=== PATIENT | male | born 1955 | race Caucasian/White ===

== ENCOUNTER 2021-10-09 16:49 | Emergency (ER) | payer MEDICARE, SELFPAY ==
[2021-10-09] VITALS (29 sets, daily range): BP systolic 153–177; BP diastolic 83–108; PULSE 55–112; RESP 2–64; TEMP 37; O2SAT 80–100
--- NOTE | 2021-10-09 16:58 | DI.RAD.S_ITS ---
PROCEDURE: XR CHEST 1V INDICATIONS: chest pain TECHNIQUE: One view of the chest was acquired. COMPARISON: None. FINDINGS: Surgical changes and devices: None. Lungs and pleura: Lungs are clear. No pleural effusions or pneumothorax. Mediastinum: Mediastinal contours appear normal. Heart size is normal. Bones and chest wall: No suspicious bony lesions. Overlying soft tissues appear unremarkable. IMPRESSION: No acute process. Dictated by: Fracisco Mckinney M.D. on 10/09/2021 at 17:44 Approved by: Fracisco Mckinney M.D. on 10/09/2021 at 17:44
[2021-10-09 17:28] LABS: Alanine Aminotransferase 13 IU/L (<50); Albumin 4.9 g/dL (3.5-5.0); Albumin Globulin Ratio 0.9 (1.0-2.8); Alkaline Phosphatase 88 U/L (38-126); Aspartate Aminotransferase 20 IU/L (17-59); Bilirubin Total 0.5 mg/dL (0.2-1.3); Calcium 10.8 mg/dL (8.4-10.2); Carbon Dioxide 19 mmol/L (22-32); Chloride 96 mmol/L (98-107); Creatine Kinase 95 U/L (55-170); Estimated Glomerular Filt Rate 5.5 mL/min (>60); Globulin 5.7 g/dL (1.7-4.1); Glucose 236 mg/dL (80-110); HEMOLYSIS < 15 (0-50); Lipase 174 U/L (23-300); Magnesium 2.3 mg/dL (1.6-2.3); Sodium 129 mmol/L (137-145)
[2021-10-09 17:35] LABS: BUN Creatinine Ratio 20.3 (6-22)
[2021-10-09 17:37] LABS: Blood Urea Nitrogen 195 mg/dL (9-20); Potassium 7.9 mmol/L (3.4-5.1); Total Protein 10.6 g/dL (6.3-8.2)
[2021-10-09 17:39] LABS: Troponin I 0.046 ng/mL (0.01-0.034)
[2021-10-09 17:48] LABS: Add Manual Diff / Slide Review NO; Basophils Absolute Auto 0 /uL (0-100); Basophils Percent Auto 0.3 % (0-2); Eosinophils Absolute Auto 100 /uL (0-450); Eosinophils Percent Auto 0.5 % (2-4); Hematocrit 39.4 % (41-53); Hemoglobin 13.4 g/dL (13.5-17.5); Lymphocytes Absolute Auto 800 /uL (1100-4500); Lymphocytes Percent Auto 5.8 % (25-40); Mean Corpuscular HGB Conc 33.9 % (30-36); Mean Corpuscular Hemoglobin 30.1 PG (26-34); Mean Corpuscular Volume 88.8 fL (80-100); Monocytes Absolute Auto 700 /uL (0-900); Monocytes Percent Auto 4.8 % (3-14); Neutrophils Absolute Auto 12200 /uL (1500-7000); Neutrophils Percent Auto 88.6 % (50-75); Platelet Count 407 X10^3/uL (150-400); Red Blood Cell Count 4.43 X10^6/uL (4.5-5.9); Red Cell Distribution Width 13.8 % (11.6-14.8); White Blood Cell Count 13.8 X10^3/uL (4.5-11.0)
[2021-10-09 17:56] LABS: Magnesium 2.4 mg/dL (1.6-2.3)
--- NOTE | 2021-10-09 17:59 | ED.RECABL ---
HPI - Recheck/Abnormal Lab/Rx General Chief Complaint: Recheck/Abnormal Lab/Rx Stated Complaint: numbnessin hands, weakness, not feeling well Time Seen by Provider: 10/09/21 17:38 Source: patient Mode of arrival: Ambulatory History of Present Illness HPI narrative: Patient is a 66-year-old male who has no past medical history presenting with progressive weakness. He does not really complain of shortness of breath chest pain or falls. He states he has stairs in his house a week no longer make it up them. He continues to eat and drink he occasionally feels nauseous no significant vomiting. He has been checking for fever he has not had any fever or night sweats. He does have urinary incontinence stating that he has to wear diapers. He occasionally smokes marijuana and cigarettes but and takes vitamin-C no other supplements or medications. Related Data Home Medications Medication Instructions Recorded Confirmed No Known Home Medications 10/09/21 10/09/21 Allergies Allergy/AdvReac Type Severity Reaction Status Date / Time No Known Drug Allergies Allergy Verified 10/09/21 17:38 Review of Systems Review of Systems ROS Unobtainable: All systems reviewed & are unremarkable except as noted in HPI and below Constitutional Constitutional: Reports as per HPI, Denies body ache(s), Denies chills, Denies headache(s) and Reports weakness Eyes Eyes: Denies diplopia ENT Ears, Nose, Mouth, and Throat: Denies vertigo, Denies dizziness, Denies headache(s) and Denies sore throat Cardiovascular Cardiovascular: Denies chest pain, Denies syncope and Denies dyspnea on exertion Respiratory Respiratory: Denies chest congestion and Denies dyspnea on exertion Gastrointestinal Gastrointestinal: Denies abdominal pain, Reports nausea and Denies vomiting Genitourinary Genitourinary: Reports as per HPI and Reports urinary incontinence Musculoskeletal Musculoskeletal: Reports atrophy, Denies deformity and Reports muscle weakness Integumentary/Breasts Skin/Breast: Denies rash and Denies skin pain Neurologic Neurologic: Denies vertigo, Denies dizziness, Denies syncope, Denies headache(s) and Reports weakness Patient History Social History Smoking Status: Current every day smoker Smoking Status: Current every day smoker Exam Initial Vital Signs Initial Vital Signs: Vital Signs Temperature 98.6 F 10/09/21 16:56 Pulse Rate 58 L 01/18/22 16:56 Respiratory Rate 20 10/09/21 16:56 Blood Pressure 156/102 H 10/09/21 16:56 Pulse Oximetry 98 10/09/21 16:56 GENERAL: Thin week 66-year-old maleand in no acute distress. HEENT: Head atraumatic,EOMI, pupils reactive, face symmetric, moist mucous membranes CARDIOVASCULAR: Regular rate and rhythm without murmurs, rubs or gallops. RESPIRATORY: Breath sounds equal bilaterally, no wheezes rales or rhonchi. ABDOMEN: Soft, palpable distended bladder by ultrasound. No significant pain. No tenderness no guarding or rebound EXTREMITIES: Normal range of motion, no clubbing or edema. Neurovascularly intact NEUROLOGICAL: Alert and oriented x4.Normal gait and speech. Cranial nerves II through XII grossly intact. Good [id number], good [id number], strength equal bilaterally, no dysarthria or aphasia, sensation in tact to soft touch bilaterally, no visual changes, no facial droop SKIN: Warm, dry, no laceration, no petechiae, no rashes or lesions. Course Orders Ordered: ED Orders 10/09/21 18:24 CT abdomen pelvis wo con Stat CT head/brain wo con Stat 10/09/21 18:25 COVID19 -Nasal swab/Pre-Proc Stat 10/09/21 18:40 Calcium Urine Random Stat Sodium Urine Random Stat UA Complete [Urinalysis and Microscopic] Stat Urine Culture Stat 10/09/21 18:50 Creatinine Urine Random Stat 10/09/21 18:52 Urine Drug Screen, Rapid Stat 10/09/21 19:56 BMP [Basic Metabolic Panel] Stat Trop I [Troponin I] Stat 10/09/21 20:04 Blood Culture Stat 10/09/21 21:02 EKG-12 Lead Stat 10/10/21 07:00 BMP [Basic Metabolic Panel] Stat CBC Auto Diff [Complete Blood Count AUTO DIFF] Stat Discontinued Medications Albuterol (Albuterol 2.5 Mg/3 Ml Neb (Adult)) 2.5 mg INH NOW ONE Stop: 10/09/21 18:13 Last Admin: 10/09/21 18:25 Dose: 2.5 mg Documented by: BERNY Dextrose (Dextrose 50 % In Water 25 Gm/50 Ml Syringe) 25 gm IV NOW ONE Stop: 10/09/21 17:39 Last Admin: 10/09/21 18:06 Dose: 25 gm Documented by: OBEY Sodium Chloride (Normal Saline 0.9%) 1,000 mls @ 150 mls/hr IV CONT RAJENDRA Calcium Gluconate 4.65 meq/ (Sodium Chloride) 60 mls @ 180 mls/hr IV NOW ONE Stop: 10/09/21 17:57 Last Infusion: 10/09/21 18:33 Dose: 0 mls/hr Documented by: Admin: 10/09/21 18:04 Dose: 180 mls/hr Documented by: OBEY Sodium Chloride (Normal Saline 0.9%) 1,000 mls @ 500 mls/hr IV BOLUS ONE Stop: 10/09/21 19:42 Last Infusion: 10/09/21 20:04 Dose: 0 mls/hr Documented by: Admin: 10/09/21 18:10 Dose: 500 mls/hr Documented by: OBEY Sodium Chloride (Normal Saline 0.9%) 1,000 mls @ 125 mls/hr IV CONT RAJENDRA Last Infusion: 10/10/21 02:55 Dose: 125 mls/hr Documented by: Admin: 10/09/21 20:03 Dose: 125 mls/hr Documented by: OBEY Ceftriaxone Sodium 1,000 mg/ (Sodium Chloride) 100 mls @ 200 mls/hr IV NOW ONE Stop: 10/09/21 19:19 Last Infusion: 10/09/21 20:35 Dose: 0 mls/hr Documented by: Admin: 10/09/21 20:01 Dose: 200 mls/hr Documented by: OBEY Insulin Human Regular (Insulin Regular 100 Unit/Ml 3 Ml Vial) 10 unit IV NOW ONE Stop: 10/09/21 17:39 Last Admin: 10/09/21 18:06 Dose: 10 unit Documented by: OBEY Cosigned by: GALLO Lidocaine HCl (Lidocaine 2% (Glydo) 6 Ml Gel) 6 ml TOP NOW ONE Stop: 10/09/21 18:07 Last Admin: 10/09/21 18:11 Dose: 6 ml Documented by: OBEY Lorazepam (Lorazepam 2 Mg/Ml Inj) 0.5 mg IV NOW ONE Stop: 10/09/21 19:31 Last Admin: 10/09/21 19:37 Dose: 0.5 mg Documented by: OBEY Lorazepam (Lorazepam 2 Mg/Ml Inj) 1 mg IV NOW ONE Stop: 10/09/21 22:52 Last Admin: 10/09/21 22:58 Dose: 1 mg Documented by: OBEY Sodium Bicarbonate (Sodium Bicarb 8.4% Syringe) 50 meq IV NOW ONE Stop: 10/09/21 17:39 Last Admin: 10/09/21 18:05 Dose: 50 meq Documented by: OBEY Sodium Polystyrene Sulfonate (Sodium Polystyrene Sulfon/Sorb 15 Gm/60 Ml Cup) 30 gm PO NOW ONE Stop: 10/09/21 17:39 Last Admin: 10/09/21 18:06 Dose: 30 gm Documented by: OBEY Vital Signs Vital signs: Vital Signs - 8 hr 10/09/21 19:15 10/09/21 19:25 10/09/21 19:30 Temperature Pulse Rate 64 71 70 Respiratory Rate 20 25 H 21 Blood Pressure 153/83 H 159/84 H Pulse Oximetry 100 98 99 10/09/21 19:45 10/09/21 20:00 10/09/21 20:15 Temperature Pulse Rate 70 68 74 Respiratory Rate 19 18 Blood Pressure Pulse Oximetry 97 100 97 10/09/21 20:30 10/09/21 20:45 10/09/21 21:00 Temperature Pulse Rate 78 78 87 Respiratory Rate 19 19 20 Blood Pressure Pulse Oximetry 96 95 92 10/09/21 21:21 10/09/21 21:30 10/09/21 21:45 Temperature Pulse Rate 78 70 82 Respiratory Rate 22 21 Blood Pressure Pulse Oximetry 98 10/09/21 22:00 10/09/21 22:15 10/09/21 22:23 Temperature Pulse Rate 61 78 64 Respiratory Rate 2 L Blood Pressure 169/101 H Pulse Oximetry 100 99 10/09/21 22:30 10/09/21 22:45 10/09/21 23:00 Temperature Pulse Rate 85 112 H 66 Respiratory Rate 44 H 37 H Blood Pressure Pulse Oximetry 80 L 99 10/09/21 23:15 10/09/21 23:30 10/10/21 02:40 Temperature 97.4 F L Pulse Rate 67 67 79 Respiratory Rate 49 H 64 H 16 Blood Pressure 144/85 H Pulse Oximetry 99 99 98 MDM - Recheck/Abnormal Lab/Rx Lab Data Result diagrams: 10/09/21 17:03 10/09/21 19:56 Labs: Lab Results 10/09/21 10/09/21 10/09/21 Range/Units 17:03 17:03 17:03 WBC 13.8 H (4.5-11.0) X10^3/uL RBC 4.43 L (4.5-5.9) X10^6/uL Hgb 13.4 L (13.5-17.5) g/dL Hct 39.4 L (41-53) % MCV 88.8 (80-100) fL MCH 30.1 (26-34) PG MCHC 33.9 (30-36) % RDW 13.8 (11.6-14.8) % Plt Count 407 H (150-400) X10^3/uL Neut % (Auto) 88.6 H (50-75) % Lymph % (Auto) 5.8 L (25-40) % [place] % (Auto) 4.8 (3-14) % Eos % (Auto) 0.5 L (2-4) % Baso % (Auto) 0.3 (0-2) % Neut # (Auto) 93965 H (5913-1760) /uL Lymph # (Auto) 800 L (2724-8476) /uL [place] # (Auto) 700 (0-900) /uL Eos # (Auto) 100 (0-450) /uL Baso # (Auto) 0 (0-100) /uL Sodium 129 L (137-145) mmol/L Potassium 7.9 H* (3.4-5.1) mmol/L Chloride 96 L (98-107) mmol/L Carbon Dioxide 19 L (22-32) mmol/L BUN 195 H* (9-20) mg/dL Creatinine 9.61 H* (0.66-1.25) mg/dL Estimated GFR 5.5 L (>60) mL/min BUN/Creatinine Ratio 20.3 (6-22) Glucose 236 H (80-110) mg/dL Lactate (0.7-2.1) mmol/L Calcium 10.8 H (8.4-10.2) mg/dL Magnesium 2.3 2.4 H (1.6-2.3) mg/dL Total Bilirubin 0.5 (0.2-1.3) mg/dL AST 20 (17-59) IU/L ALT 13 (<50) IU/L Alkaline Phosphatase 88 (38-126) U/L Total Creatine Kinase 95 (55-170) U/L CK-MB (CK-2) TNP CK-MB (CK-2) Rel Index TNP Troponin I 0.046 H (0.01-0.034) ng/mL Total Protein 10.6 H* (6.3-8.2) g/dL Albumin 4.9 (3.5-5.0) g/dL Globulin 5.7 H (1.7-4.1) g/dL Albumin/Globulin Ratio 0.9 L (1.0-2.8) Lipase 174 (23-300) U/L Procalcitonin (<0.5) ng/mL Urine Color Urine Appearance Urine pH (4.5-8.0) Ur Specific [place] (1.000-1.035) Urine Protein (Negative) Urine Glucose (UA) (Negative) g/dL Urine Ketones (NEGATIVE) Urine Occult Blood (Negative) Urine Nitrate (Negative) Urine Bilirubin (NEGATIVE) Urine Urobilinogen (0.2) E.U./dL Ur Leukocyte Esterase (NEGATIVE) Urine RBC (0-5/HPF) Urine WBC (0-5/HPF) Ur Squamous Epith Cells (0-5/HPF) Amorphous Sediment Urine Bacteria (None) Ur Culture Indicated? Ur Random Sodium (30-90) mmol/L Ur Random Calcium mg/dL Urine Creatinine mg/dL U Opiates 300ng/mL cut (Negative) Ur Oxycodone Screen (Negative) Urine Methadone Screen (Negative) Ur Barbiturates Screen (Negative) U Tricyclic Antidepress (Negative) Ur Phencyclidine Scrn (Negative) Ur Amphetamines Screen (Negative) U Methamphetamines Scrn (Negative) Ur MDMA Scrn (Ecstasy) (Negative) U Benzodiazepines Scrn (Negative) Urine Cocaine Screen (Negative) U Marijuana (THC) Screen (Negative) SARS-CoV-2 (PCR) (Negative) 10/09/21 10/09/21 10/09/21 Range/Units 17:03 17:03 18:25 WBC (4.5-11.0) X10^3/uL RBC (4.5-5.9) X10^6/uL Hgb (13.5-17.5) g/dL Hct (41-53) % MCV (80-100) fL MCH (26-34) PG MCHC (30-36) % RDW (11.6-14.8) % Plt Count (150-400) X10^3/uL Neut % (Auto) (50-75) % Lymph % (Auto) (25-40) % [place] % (Auto) (3-14) % Eos % (Auto) (2-4) % Baso % (Auto) (0-2) % Neut # (Auto) (5675-2691) /uL Lymph # (Auto) (3965-7714) /uL [place] # (Auto) (0-900) /uL Eos # (Auto) (0-450) /uL Baso # (Auto) (0-100) /uL Sodium (137-145) mmol/L Potassium (3.4-5.1) mmol/L Chloride (98-107) mmol/L Carbon Dioxide (22-32) mmol/L BUN (9-20) mg/dL Creatinine (0.66-1.25) mg/dL Estimated GFR (>60) mL/min BUN/Creatinine Ratio (6-22) Glucose (80-110) mg/dL Lactate 1.6 (0.7-2.1) mmol/L Calcium (8.4-10.2) mg/dL Magnesium (1.6-2.3) mg/dL Total Bilirubin (0.2-1.3) mg/dL AST (17-59) IU/L ALT (<50) IU/L Alkaline Phosphatase (38-126) U/L Total Creatine Kinase (55-170) U/L CK-MB (CK-2) CK-MB (CK-2) Rel Index Troponin I (0.01-0.034) ng/mL Total Protein (6.3-8.2) g/dL Albumin (3.5-5.0) g/dL Globulin (1.7-4.1) g/dL Albumin/Globulin Ratio (1.0-2.8) Lipase (23-300) U/L Procalcitonin 1.29 H (<0.5) ng/mL Urine Color Urine Appearance Urine pH (4.5-8.0) Ur Specific [place] (1.000-1.035) Urine Protein (Negative) Urine Glucose (UA) (Negative) g/dL Urine Ketones (NEGATIVE) Urine Occult Blood (Negative) Urine Nitrate (Negative) Urine Bilirubin (NEGATIVE) Urine Urobilinogen (0.2) E.U./dL Ur Leukocyte Esterase (NEGATIVE) Urine RBC (0-5/HPF) Urine WBC (0-5/HPF) Ur Squamous Epith Cells (0-5/HPF) Amorphous Sediment Urine Bacteria (None) Ur Culture Indicated? Ur Random Sodium (30-90) mmol/L Ur Random Calcium mg/dL Urine Creatinine mg/dL U Opiates 300ng/mL cut (Negative) Ur Oxycodone Screen (Negative) Urine Methadone Screen (Negative) Ur Barbiturates Screen (Negative) U Tricyclic Antidepress (Negative) Ur Phencyclidine Scrn (Negative) Ur Amphetamines Screen (Negative) U Methamphetamines Scrn (Negative) Ur MDMA Scrn (Ecstasy) (Negative) U Benzodiazepines Scrn (Negative) Urine Cocaine Screen (Negative) U Marijuana (THC) Screen (Negative) SARS-CoV-2 (PCR) Positive H (Negative) 10/09/21 10/09/21 10/09/21 Range/Units 18:40 18:40 18:40 WBC (4.5-11.0) X10^3/uL RBC (4.5-5.9) X10^6/uL Hgb (13.5-17.5) g/dL Hct (41-53) % MCV (80-100) fL MCH (26-34) PG MCHC (30-36) % RDW (11.6-14.8) % Plt Count (150-400) X10^3/uL Neut % (Auto) (50-75) % Lymph % (Auto) (25-40) % [place] % (Auto) (3-14) % Eos % (Auto) (2-4) % Baso % (Auto) (0-2) % Neut # (Auto) (2681-3102) /uL Lymph # (Auto) (2140-4702) /uL [place] # (Auto) (0-900) /uL Eos # (Auto) (0-450) /uL Baso # (Auto) (0-100) /uL Sodium (137-145) mmol/L Potassium (3.4-5.1) mmol/L Chloride (98-107) mmol/L Carbon Dioxide (22-32) mmol/L BUN (9-20) mg/dL Creatinine (0.66-1.25) mg/dL Estimated GFR (>60) mL/min BUN/Creatinine Ratio (6-22) Glucose (80-110) mg/dL Lactate (0.7-2.1) mmol/L Calcium (8.4-10.2) mg/dL Magnesium (1.6-2.3) mg/dL Total Bilirubin (0.2-1.3) mg/dL AST (17-59) IU/L ALT (<50) IU/L Alkaline Phosphatase (38-126) U/L Total Creatine Kinase (55-170) U/L CK-MB (CK-2) CK-MB (CK-2) Rel Index Troponin I (0.01-0.034) ng/mL Total Protein (6.3-8.2) g/dL Albumin (3.5-5.0) g/dL Globulin (1.7-4.1) g/dL Albumin/Globulin Ratio (1.0-2.8) Lipase (23-300) U/L Procalcitonin (<0.5) ng/mL Urine Color Yellow Urine Appearance Cloudy Urine pH 6.5 (4.5-8.0) Ur Specific [place] 1.010 (1.000-1.035) Urine Protein 2+ H (Negative) Urine Glucose (UA) Negative (Negative) g/dL Urine Ketones Negative (NEGATIVE) Urine Occult Blood 3+ H (Negative) Urine Nitrate Negative (Negative) Urine Bilirubin Negative (NEGATIVE) Urine Urobilinogen 0.2 (0.2) E.U./dL Ur Leukocyte Esterase 3+ H (NEGATIVE) Urine RBC 1-5/hpf (0-5/HPF) Urine WBC >100/hpf H (0-5/HPF) Ur Squamous Epith Cells 0-1 /hpf (0-5/HPF) Amorphous Sediment 1+ Urine Bacteria Many (>30) H (None) Ur Culture Indicated? Specimen cultured Ur Random Sodium 31 (30-90) mmol/L Ur Random Calcium 1.9 mg/dL Urine Creatinine mg/dL U Opiates 300ng/mL cut (Negative) Ur Oxycodone Screen (Negative) Urine Methadone Screen (Negative) Ur Barbiturates Screen (Negative) U Tricyclic Antidepress (Negative) Ur Phencyclidine Scrn (Negative) Ur Amphetamines Screen (Negative) U Methamphetamines Scrn (Negative) Ur MDMA Scrn (Ecstasy) (Negative) U Benzodiazepines Scrn (Negative) Urine Cocaine Screen (Negative) U Marijuana (THC) Screen (Negative) SARS-CoV-2 (PCR) (Negative) 10/09/21 10/09/21 10/09/21 Range/Units 18:50 18:52 19:56 WBC (4.5-11.0) X10^3/uL RBC (4.5-5.9) X10^6/uL Hgb (13.5-17.5) g/dL Hct (41-53) % MCV (80-100) fL MCH (26-34) PG MCHC (30-36) % RDW (11.6-14.8) % Plt Count (150-400) X10^3/uL Neut % (Auto) (50-75) % Lymph % (Auto) (25-40) % [place] % (Auto) (3-14) % Eos % (Auto) (2-4) % Baso % (Auto) (0-2) % Neut # (Auto) (1715-6984) /uL Lymph # (Auto) (3856-3781) /uL [place] # (Auto) (0-900) /uL Eos # (Auto) (0-450) /uL Baso # (Auto) (0-100) /uL Sodium 134 L (137-145) mmol/L Potassium 5.8 H D (3.4-5.1) mmol/L Chloride 99 (98-107) mmol/L Carbon Dioxide 21 L (22-32) mmol/L BUN 188 H* (9-20) mg/dL Creatinine 8.96 H* (0.66-1.25) mg/dL Estimated GFR 6.0 L (>60) mL/min BUN/Creatinine Ratio 21.0 (6-22) Glucose 149 H (80-110) mg/dL Lactate (0.7-2.1) mmol/L Calcium 10.4 H (8.4-10.2) mg/dL Magnesium (1.6-2.3) mg/dL Total Bilirubin (0.2-1.3) mg/dL AST (17-59) IU/L ALT (<50) IU/L Alkaline Phosphatase (38-126) U/L Total Creatine Kinase (55-170) U/L CK-MB (CK-2) CK-MB (CK-2) Rel Index Troponin I (0.01-0.034) ng/mL Total Protein (6.3-8.2) g/dL Albumin (3.5-5.0) g/dL Globulin (1.7-4.1) g/dL Albumin/Globulin Ratio (1.0-2.8) Lipase (23-300) U/L Procalcitonin (<0.5) ng/mL Urine Color Urine Appearance Urine pH (4.5-8.0) Ur Specific [place] (1.000-1.035) Urine Protein (Negative) Urine Glucose (UA) (Negative) g/dL Urine Ketones (NEGATIVE) Urine Occult Blood (Negative) Urine Nitrate (Negative) Urine Bilirubin (NEGATIVE) Urine Urobilinogen (0.2) E.U./dL Ur Leukocyte Esterase (NEGATIVE) Urine RBC (0-5/HPF) Urine WBC (0-5/HPF) Ur Squamous Epith Cells (0-5/HPF) Amorphous Sediment Urine Bacteria (None) Ur Culture Indicated? Ur Random Sodium (30-90) mmol/L Ur Random Calcium mg/dL Urine Creatinine 70.4 mg/dL U Opiates 300ng/mL cut Negative (Negative) Ur Oxycodone Screen Negative (Negative) Urine Methadone Screen Negative (Negative) Ur Barbiturates Screen Negative (Negative) U Tricyclic Antidepress Negative (Negative) Ur Phencyclidine Scrn Negative (Negative) Ur Amphetamines Screen Negative (Negative) U Methamphetamines Scrn Negative (Negative) Ur MDMA Scrn (Ecstasy) Negative (Negative) U Benzodiazepines Scrn Negative (Negative) Urine Cocaine Screen Positive H (Negative) U Marijuana (THC) Screen Negative (Negative) SARS-CoV-2 (PCR) (Negative) 10/09/21 Range/Units 19:56 WBC (4.5-11.0) X10^3/uL RBC (4.5-5.9) X10^6/uL Hgb (13.5-17.5) g/dL Hct (41-53) % MCV (80-100) fL MCH (26-34) PG MCHC (30-36) % RDW (11.6-14.8) % Plt Count (150-400) X10^3/uL Neut % (Auto) (50-75) % Lymph % (Auto) (25-40) % [place] % (Auto) (3-14) % Eos % (Auto) (2-4) % Baso % (Auto) (0-2) % Neut # (Auto) (7929-7621) /uL Lymph # (Auto) (0243-0513) /uL [place] # (Auto) (0-900) /uL Eos # (Auto) (0-450) /uL Baso # (Auto) (0-100) /uL Sodium (137-145) mmol/L Potassium (3.4-5.1) mmol/L Chloride (98-107) mmol/L Carbon Dioxide (22-32) mmol/L BUN (9-20) mg/dL Creatinine (0.66-1.25) mg/dL Estimated GFR (>60) mL/min BUN/Creatinine Ratio (6-22) Glucose (80-110) mg/dL Lactate (0.7-2.1) mmol/L Calcium (8.4-10.2) mg/dL Magnesium (1.6-2.3) mg/dL Total Bilirubin (0.2-1.3) mg/dL AST (17-59) IU/L ALT (<50) IU/L Alkaline Phosphatase (38-126) U/L Total Creatine Kinase (55-170) U/L CK-MB (CK-2) CK-MB (CK-2) Rel Index Troponin I 0.045 H (0.01-0.034) ng/mL Total Protein (6.3-8.2) g/dL Albumin (3.5-5.0) g/dL Globulin (1.7-4.1) g/dL Albumin/Globulin Ratio (1.0-2.8) Lipase (23-300) U/L Procalcitonin (<0.5) ng/mL Urine Color Urine Appearance Urine pH (4.5-8.0) Ur Specific [place] (1.000-1.035) Urine Protein (Negative) Urine Glucose (UA) (Negative) g/dL Urine Ketones (NEGATIVE) Urine Occult Blood (Negative) Urine Nitrate (Negative) Urine Bilirubin (NEGATIVE) Urine Urobilinogen (0.2) E.U./dL Ur Leukocyte Esterase (NEGATIVE) Urine RBC (0-5/HPF) Urine WBC (0-5/HPF) Ur Squamous Epith Cells (0-5/HPF) Amorphous Sediment Urine Bacteria (None) Ur Culture Indicated? Ur Random Sodium (30-90) mmol/L Ur Random Calcium mg/dL Urine Creatinine mg/dL U Opiates 300ng/mL cut (Negative) Ur Oxycodone Screen (Negative) Urine Methadone Screen (Negative) Ur Barbiturates Screen (Negative) U Tricyclic Antidepress (Negative) Ur Phencyclidine Scrn (Negative) Ur Amphetamines Screen (Negative) U Methamphetamines Scrn (Negative) Ur MDMA Scrn (Ecstasy) (Negative) U Benzodiazepines Scrn (Negative) Urine Cocaine Screen (Negative) U Marijuana (THC) Screen (Negative) SARS-CoV-2 (PCR) (Negative) Imaging Data Chest x-ray: Radiologist's Impression: PROCEDURE:? XR CHEST 1V ? INDICATIONS:? chest pain ? TECHNIQUE:? One view of the chest was acquired.? ? COMPARISON:? None. ? FINDINGS:? ? Surgical changes and devices:? None.? ? Lungs and pleura:? Lungs are clear.? No pleural effusions or pneumothorax.? ? Mediastinum:? Mediastinal contours appear normal.? Heart size is normal.? ? Bones and chest wall:? No suspicious bony lesions.? Overlying soft tissues appear unremarkable.? ? IMPRESSION:? No acute process. ? ? Dictated by: Fracisco Mckinney M.D. on 10/09/2021 at 17:44 ? ? CT scan - head: Radiologist's Impression: PROCEDURE:? CT HEAD/BRAIN WO CON ? INDICATIONS:? weakness falls ? TECHNIQUE:? Noncontrast 4.5 mm thick angled axial sections acquired from the foramen magnum to the vertex, with coronal and sagittal reformats.? For radiation dose reduction, the following was used:? automated exposure control, adjustment of mA and/or kV according to patient size.? ? COMPARISON:? None. ? FINDINGS:? Image quality:? Excellent.? ? CSF spaces:? Basal cisterns are patent.? No extra-axial fluid collections.? The ventricles are symmetric in size and shape.? ? Brain:? No intracranial bleeds or masses.? Moderate chronic left frontal lobe infarct.? There is cerebral volume loss for age, with resultant ventricular and sulcal prominence.? There are periventricular and deep white matter chronic small vessel ischemic changes.? There is intracranial internal carotid artery atherosclerosis.? ? Skull and face:? Calvarium and visualized facial bones appear intact, without suspicious lesions.? ? Sinuses:? Visualized sinuses and mastoids are clear.? ? IMPRESSION:? 1. Volume loss and small vessel ischemic disease. 2. Chronic left frontal lobe infarct. 3. No acute intracranial abnormality. ? ? Dictated by: Fracisco Mckinney M.D. on 10/09/2021 at 19:04 ? CT scan - abdomen/pelvis: Radiologist's Impression: PROCEDURE:? CT ABDOMEN PELVIS WO CON ? INDICATIONS:? new onset severe renal failure ? TECHNIQUE:? Noncontrast 5 mm thick sections acquired from the diaphragms to the symphysis.? 5 mm coronal and sagittal reformats were then performed.? For radiation dose reduction, the following was used:? automated exposure control, adjustment of mA and/or kV according to patient size.? ? COMPARISON:? None. ? FINDINGS:? Image quality:? Excellent.? ? ABDOMEN:? Lung bases:? Lung bases are clear.? Heart size is normal.? Calcification of the coronary vasculature is present. ? Solid organs:? Liver is normal in size.? Gallbladder is within normal limits.? Pancreas is normal in contours.? Spleen is normal in size.? No adrenal nodules.? There is moderate renal enlargement bilaterally.? There is severe chronic appearing bilateral hydronephrosis and moderate bilateral ureteral dilatation.? No significant perinephric fat stranding. ? Peritoneum and bowel:? Unenhanced bowel loops demonstrate normal wall thickness and caliber.? No free fluid or air.? ? Nodes and vessels:? No retroperitoneal or mesenteric adenopathy by size criteria.? Aorta and inferior vena cava are normal in caliber.? ? Miscellaneous:? No ventral hernias.? ? ? PELVIS:? Genitourinary:? Serrano catheter is present.? Severe diffuse thickening of the urinary bladder is present. ? Miscellaneous:? No inguinal hernias or adenopathy.? ? Bones:? No suspicious bony lesions.? No vertebral body compression fractures.? ? IMPRESSION:? 1. Severe chronic appearing bilateral hydronephrosis. 2. Urinary bladder thickening, suggestive of infection, inflammation, or neoplasm.? Further assessment with cystoscopy is recommended.? ? ? Dictated by: Fracisco Mckinney M.D. on 10/09/2021 at 19:05 ? ? US Renal: Radiologist's Impression: PROCEDURE:? US RENAL COMPLETE ? INDICATIONS:? NEW ONSET RENAL FAILURE ? TECHNIQUE:? Real-time scanning was performed of the kidneys and bladder, with image documentation.? ? COMPARISON:? [facility], CT, CT ABDOMEN PELVIS WO CON, 10/09/2021, 18:27. ? FINDINGS:? ? Kidneys:? Right kidney measures 13.2 cm, left kidney measures 14.8 cm.? Severe bilateral hydronephrosis is present, as diagnosed by same-day CT KUB examination. ? Bladder:? Decompressed with Serrano catheter. ? Miscellaneous:? No free pelvic fluid.? ? IMPRESSION:? Severe bilateral hydronephrosis, as diagnosed by the immediately preceding CT KUB examination, is unchanged. ? ? Dictated by: Fracisco Mckinney M.D. on 10/09/2021 at 19:31 ? ? ECG Data Interpretation: EKG 1. Sinus rhythm rate 58 RI interval 202 QRS 10 peaked T-waves noted in all leads no ST changes EKG 2. Sinus rhythm T-waves still present however improved MDM Narrative Medical decision making narrative: Patient has a vague general symptoms. Blood work reveals new onset renal failure with a creatinine of 9.6 along with potassium of 7.9. He is given treatment for hyperkalemia and Serrano catheter. Initial output was over 2 L. he does feel better with the Serrano catheter in place. Repeat blood work shows improvement in creatinine and potassium. He is currently afebrile but does have mild leukocytosis of 13 with UTI. He is given 1 dose of Rocephin but overall is not septic. Vitals have remained stable. Urine drug screen is positive for cocaine only. Patient is also found to be COVID positive but remains relatively asymptomatic. He is not hypoxic febrile or having a sore throat. CT head for frequent falls is negative CT abdomen and pelvis without contrast does not show any masses both ultrasound and CT showed bilateral hydronephrosis likely secondary to outlet obstruction. I suspect cocaine may be playing a role and outlet obstruction leading to renal failure. *FeNa 3.3% *Blood cultures pending Significant bed shortage. Fortunately [facility] does have 1 [address] Klein, hospitalist has been updated patient's symptoms test results and happily accepts patient. Critical Care Time Critical Care Time Critical Care Time: Yes Total Critical Care Time: 45 Attestation: The high probability of a clinically significant, sudden or life threatening deterioration of the [cardiovascular] system(s) required my full and direct attention, intervention and personal management. The aggregate critical care time was [45] minutes. This time is in addition to time spent performing reported procedures but includes the following: [x] Data Review and interpretation [x] Patient assessment and monitoring of vital signs [x] Documentation [x] Medication orders and management Discharge Plan Departure Patient Disposition: [facility] Clinical Impression: Acute kidney failure, Acute hyperkalemia, Acute UTI, COVID-19 Prescriptions: No Action No Known Home Medications 0RF
--- NOTE | 2021-10-09 18:00 | DI.US.S_ITS ---
PROCEDURE: US RENAL COMPLETE INDICATIONS: NEW ONSET RENAL FAILURE TECHNIQUE: Real-time scanning was performed of the kidneys and bladder, with image documentation. COMPARISON: [facility], CT, CT ABDOMEN PELVIS WO CON, 10/09/2021, 18:27. FINDINGS: Kidneys: Right kidney measures 13.2 cm, left kidney measures 14.8 cm. Severe bilateral hydronephrosis is present, as diagnosed by same-day CT KUB examination. Bladder: Decompressed with Serrano catheter. Miscellaneous: No free pelvic fluid. IMPRESSION: Severe bilateral hydronephrosis, as diagnosed by the immediately preceding CT KUB examination, is unchanged. Dictated by: Fracisco Mckinney M.D. on 10/09/2021 at 19:31 Approved by: Fracisco Mckinney M.D. on 10/09/2021 at 19:32
[2021-10-09] MEDS: CALCIUM GLUCONATE 4.65 MEQ in SODIUM CHLORIDE 0.9% 50 ML 180 ML IV (18:04)
[2021-10-09] MEDS: SODIUM BICARB 8.4% SYRINGE 50 MEQ IV (18:05)
[2021-10-09] MEDS: DEXTROSE 50 % IN WATER 25 GM/50 ML SYRINGE IV (18:06)
[2021-10-09] MEDS: INSULIN REGULAR 100 UNIT/ML 3 ML VIAL 10 UNIT IV (18:06)
[2021-10-09] MEDS: SODIUM POLYSTYRENE SULFON/SORB 15 GM/60 ML CUP 30 GM PO (18:06)
[2021-10-09] MEDS: SODIUM CHLORIDE 0.9% 1,000 ML 500 ML IV (18:10)
[2021-10-09] MEDS: LIDOCAINE 2% (GLYDO) 6 ML GEL TOP (18:11)
--- NOTE | 2021-10-09 18:24 | DI.CT.S_ITS ---
PROCEDURE: CT HEAD/BRAIN WO CON INDICATIONS: weakness falls TECHNIQUE: Noncontrast 4.5 mm thick angled axial sections acquired from the foramen magnum to the vertex, with coronal and sagittal reformats. For radiation dose reduction, the following was used: automated exposure control, adjustment of mA and/or kV according to patient size. COMPARISON: None. FINDINGS: Image quality: Excellent. CSF spaces: Basal cisterns are patent. No extra-axial fluid collections. The ventricles are symmetric in size and shape. Brain: No intracranial bleeds or masses. Moderate chronic left frontal lobe infarct. There is cerebral volume loss for age, with resultant ventricular and sulcal prominence. There are periventricular and deep white matter chronic small vessel ischemic changes. There is intracranial internal carotid artery atherosclerosis. Skull and face: Calvarium and visualized facial bones appear intact, without suspicious lesions. Sinuses: Visualized sinuses and mastoids are clear. IMPRESSION: 1. Volume loss and small vessel ischemic disease. 2. Chronic left frontal lobe infarct. 3. No acute intracranial abnormality. Dictated by: Fracisco Mckinney M.D. on 10/09/2021 at 19:04 Approved by: Fracisco Mckinney M.D. on 10/09/2021 at 19:04
--- NOTE | 2021-10-09 18:24 | DI.CT.S_ITS ---
PROCEDURE: CT ABDOMEN PELVIS WO CON INDICATIONS: new onset severe renal failure TECHNIQUE: Noncontrast 5 mm thick sections acquired from the diaphragms to the symphysis. 5 mm coronal and sagittal reformats were then performed. For radiation dose reduction, the following was used: automated exposure control, adjustment of mA and/or kV according to patient size. COMPARISON: None. FINDINGS: Image quality: Excellent. ABDOMEN: Lung bases: Lung bases are clear. Heart size is normal. Calcification of the coronary vasculature is present. Solid organs: Liver is normal in size. Gallbladder is within normal limits. Pancreas is normal in contours. Spleen is normal in size. No adrenal nodules. There is moderate renal enlargement bilaterally. There is severe chronic appearing bilateral hydronephrosis and moderate bilateral ureteral dilatation. No significant perinephric fat stranding. Peritoneum and bowel: Unenhanced bowel loops demonstrate normal wall thickness and caliber. No free fluid or air. Nodes and vessels: No retroperitoneal or mesenteric adenopathy by size criteria. Aorta and inferior vena cava are normal in caliber. Miscellaneous: No ventral hernias. PELVIS: Genitourinary: Serrano catheter is present. Severe diffuse thickening of the urinary bladder is present. Miscellaneous: No inguinal hernias or adenopathy. Bones: No suspicious bony lesions. No vertebral body compression fractures. IMPRESSION: 1. Severe chronic appearing bilateral hydronephrosis. 2. Urinary bladder thickening, suggestive of infection, inflammation, or neoplasm. Further assessment with cystoscopy is recommended. Dictated by: Fracisco Mckinney M.D. on 10/09/2021 at 19:05 Approved by: Fracisco Mckinney M.D. on 10/09/2021 at 19:07
[2021-10-09] MEDS: ALBUTEROL 2.5 MG/3 ML NEB (ADULT) INH (18:25)
[2021-10-09 18:51] LABS: COVID19 -Nasal RAPID POSITIVE (Negative)
[2021-10-09 18:56] LABS: Appearance Urine UA CLOUDY; Bilirubin Urine UA NEGATIVE (NEGATIVE); Color Urine UA YELLOW; Glucose Urine UA NEGATIVE (Negative); Ketones Urine UA NEGATIVE (NEGATIVE); Leukocyte Esterase Urine UA 3+ (NEGATIVE); Nitrite Urine UA NEGATIVE (Negative); Occult Blood Urine UA 3+ (Negative); Protein Urine UA 2+ (Negative); Urobilinogen Urine UA 0.2 E.U./dL (0.2); pH Urine UA 6.5 (4.5-8.0)
[2021-10-09 18:57] LABS: Sodium Urine Random 31 mmol/L (30-90)
[2021-10-09 19:00] LABS: Creatinine Urine Random 70.4 mg/dL
[2021-10-09 19:03] LABS: UR Morphine/Opiate cutoff 300 Negative (Negative); Ur Creatinine Normal (Normal); Ur Specific Gravity Normal (Normal); Urine Amphetamines Negative (Negative); Urine Barbiturates Negative (Negative); Urine Benzodiazepines Negative (Negative); Urine Cocaine Positive (Negative); Urine MDMA Negative (Negative); Urine Methadone Negative (Negative); Urine Methamphetamines Negative (Negative); Urine Phencyclidine Negative (Negative); Urine Tetrahydrocannabinol Negative (Negative); Urine pH Normal (Normal)
[2021-10-09 19:04] LABS: Urine Oxycodone Negative (Negative); Urine Tricyclic Antidepressant Negative (Negative)
[2021-10-09 19:16] LABS: Amorphous Sediment Urine 1+; Bacteria Urine Many (>30); Culture Indicated Urine Specimen Cultured; RBC Urine 1-5/HPF (0-5/HPF); Squamous Epithelial Cell Urine 0-1 /HPF (0-5/HPF); WBC Urine >100/HPF (0-5/HPF)
[2021-10-09 19:34] LABS: Procalcitonin 1.29 ng/mL (<0.5)
[2021-10-09] MEDS: LORazepam 2 MG/ML INJ 0.5 MG IV (19:37)
[2021-10-09] MEDS: cefTRIAXone 1,000 MG in SODIUM CHLORIDE 0.9% 100 ML 200 ML IV (20:01)
[2021-10-09] MEDS: SODIUM CHLORIDE 0.9% 1,000 ML 125 ML IV (20:03)
[2021-10-09 20:16] LABS: Calcium Urine Random 1.9 mg/dL
[2021-10-09 20:29] LABS: Calcium 10.4 mg/dL (8.4-10.2); Carbon Dioxide 21 mmol/L (22-32); Chloride 99 mmol/L (98-107); Glucose 149 mg/dL (80-110); HEMOLYSIS < 15 (0-50); Sodium 134 mmol/L (137-145)
[2021-10-09 20:36] LABS: Potassium 5.8 mmol/L (3.4-5.1)
[2021-10-09 20:41] LABS: Blood Urea Nitrogen 188 mg/dL (9-20); Troponin I 0.045 ng/mL (0.01-0.034)
[2021-10-09 21:15] LABS: Lactate (Lactic Acid) 1.6 mmol/L (0.7-2.1)
--- NOTE | 2021-10-09 22:33 | PC.NURSE ---
Pt given juice to drink with ok from Dr Montague
[2021-10-09] MEDS: LORazepam 2 MG/ML INJ 1 MG IV (22:58)
--- NOTE | 2021-10-10 02:31 | PC.NURSE ---
Report called to Pierce LAZAR at [facility]
[2021-10-10 02:40] VITALS: BP 144/85; PULSE 79; RESP 16; TEMP 36.3; O2SAT 98
== END 2021-10-10 03:12 | disposition short-term general hospital (02) ==
PROVIDERS: Emergency Medicine; Emergency Provider Emergency Medicine
DX: U07.1 COVID-19 (principal); N17.9 Acute kidney failure, unspecified; E87.5 Hyperkalemia; N39.0 Urinary tract infection, site not specified; F17.200 Nicotine dependence, unspecified, uncomplicated; R53.1 Weakness
CPT/HCPCS: 36415; 70450; 71045; 74176; 76770; 80048; 80053; 80305; 81001; 82340; 82550; 82570; 83605; 83690; 83735; 84145; 84300; 84484; 85025; 87040; 87086; 87635; 93005; 93010; 96361; 96365; 96367; 96375; 96376; 99285; 99291; 99292; C9803; J0610; J0696; J2060; J7613

== ENCOUNTER → 2021-10-29 09:34 | Outpatient (CLI) | payer MEDICARE, SELFPAY ==
[2021-10-29 10:21] LABS: Appearance Urine UA CLEAR; Bilirubin Urine UA NEGATIVE (NEGATIVE); Color Urine UA YELLOW; Glucose Urine UA NEGATIVE (Negative); Ketones Urine UA NEGATIVE (NEGATIVE); Leukocyte Esterase Urine UA 1+ (NEGATIVE); Nitrite Urine UA NEGATIVE (Negative); Occult Blood Urine UA 1+ (Negative); Protein Urine UA 1+ (Negative); Urobilinogen Urine UA 0.2 E.U./dL (0.2); pH Urine UA 6.5 (4.5-8.0)
[2021-10-29 10:34] LABS: Bacteria Urine Few (2-10); Culture Indicated Urine Specimen Cultured; RBC Urine 1-5/HPF (0-5/HPF); Squamous Epithelial Cell Urine None Seen (0-5/HPF); WBC Urine 1-5/HPF (0-5/HPF)
== END ==
PROVIDERS: Referring Provider Student in an Organized Health Care Education/Training Program; Visit Provider Student in an Organized Health Care Education/Training Program
DX: N30.00 Acute cystitis without hematuria (principal)
CPT/HCPCS: 81001; 87077; 87086; 87186